=== PATIENT | female | born 1990 | race Caucasian/White ===

== ENCOUNTER 2020-11-03 08:26 | Outpatient (CLI) | payer OTHER, SELFPAY ==
[2020-11-03 09:05] LABS: Hematocrit 37.5 % (37.0-47.0); Hemoglobin 12.6 g/dL (12.0-15.0); Mean Corpuscular HGB Conc 33.6 g/dl (32-36); Mean Corpuscular Hemoglobin 29.9 pg (26-34); Mean Corpuscular Volume 88.9 fl (80-100); Mean Platelet Volume 9.8 fl (7.4-10.4); Platelet Count Result 271 k/mm3 (150-375); Red Blood Count 4.22 M/mm3 (4.2-5.4); White Blood Count 11.4 K/mm3 (4.5-10.0)
[2020-11-05 09:13] LABS: Rapid Plasma Reagin Non-Reactive (NonReactive)
== END 2020-11-03 08:27 | disposition home or self-care (01) ==
LOC: ANHLAB 08:27
PROVIDERS: PCP Family Medicine; Visit Provider Obstetrics & Gynecology
DX: Z01.818 Encounter for other preprocedural examination (principal)
CPT/HCPCS: 36415; 85027; 86592; 86850; 86900; 86901

== ENCOUNTER 2020-11-05 10:03 | Inpatient (IN) | payer OTHER, SELFPAY ==
--- NOTE | 2020-10-30 09:01 | P.HP_ITS ---
H&P: HPI History of Present Illness Date/Time: 10/30/20 09:01 Chief Complaint: term iup Narrative: Kristin Wing is a 30 year old female she the 2 para 1 whose last menstrual period was 02/04/2020, EDC is 0 11/08/2020, confirmed by 10 week ultrasound presents for repeat section. has been uncomplicated. She has had previous section. She is negative for group B strep Review of Systems Review of Systems: All systems reviewed & are unremarkable except as noted in HPI and below PMFSH Family History Family History Father [place] disease Social History Social History Substance use: never Gender identity (if verbalized by the patient): Female Spiritual care concerns: No Meds Home Medications and Allergies Home Medications Medication Instructions Recorded Confirmed Type PNV cmb#95-ferrous fumarate-FA 1 tablet PO DAILY 10/06/20 10/06/20 History [] Allergies Allergy/AdvReac Type Severity Reaction Status Date / Time No Known Allergies Allergy Unverified 01/26/19 12:33 Exam Const: General: no acute distress Eyes: General: appearance normal, both eyes and all related structures Neck: Neck: supple and no JVD Thyroid: thyroid normal Resp: Effort & Inspection: normal respiratory effort Auscultation: clear to auscultation bilaterally Cardio: Rate: regular rate Rhythm: regular rhythm GI: Inspection: non-distended GI Palp: Yes Soft to palpation, No Tenderness to palpation present (GI) and No Guarding due to palpation present (GI) Auscultation: normal bowel sounds : General: Yes bladder normal to palpation External Female Exam: normal external appearance Speculum Exam - Vagina: normal appearance of the vagina Speculum Exam - Cervix: normal appearance of the cervix Bimanual exam- vagina & uterus: consistency normal ( gravid soft uterus) Skin: General skin exam: no rashes or lesions noted Extrem: General: normal to inspection and no edema Psych: Mental Status: mental status grossly normal Affect: normal affect Assessment and Plan Additional Plan impression: Term with previous section Plan: Repeat low-transverse section
[2020-11-05] VITALS (57 sets, daily range): BP systolic 91–120; BP diastolic 61–83; PULSE 68–121; RESP 14–18; TEMP 36.1–36.6; O2SAT 88–100; BMI 25.9
--- NOTE | 2020-11-05 07:41 | WPDHPUPDATE1 ---
History and Physical Update Update Date/Time: 11/05/20 07:41 History and Physical has been reviewed, including an updated exam of the patient. There are NO changes in the patient's condition. Risks, benefits, and alternatives have been discussed and questions answered. Patient agrees to proceed with procedure.
[2020-11-05] MEDS: LACTATED RINGERS 1,000 ML 125 ML IV CONT ×2 (10:58→13:40)
--- NOTE | 2020-11-05 11:25 | WPDANESEPPF ---
Anes - Initial Pre Proc Eval Procedure: Operation Date: 11/05/20 12:00 Proposed Procedures p Repeat Section - Sachin Thompson MD Date/Time: 11/05/20 11:25 Surgeon: Sachin Thompson MD Pre Op Diagnosis: C/S Patient Data Age: 30 Gender: F Height: 5 ft 8 in Weight: 77.27 kg Last Vital Signs Pulse 96 11/05/20 10:46 BP 109/79 11/05/20 10:46 Allergies Allergy/AdvReac Type Severity Reaction Status Date / Time No Known Allergies Allergy Unverified 01/26/19 12:33 Home Medications Medication Instructions Recorded Confirmed Type PNV cmb#95-ferrous fumarate-FA 1 tablet PO DAILY 10/06/20 10/06/20 History [] Laboratory Tests 11/05/20 10:41 HIV 1&2 Ab/P24 Ag 4thGn Pending Patient hx anesthesia problems: none Family hx anesthesia problems: none PMFSH Surgical History Surgical History (Updated 11/05/20 @ 11:25 by Sachin White MD) History of section Family History Family History Father [place] disease Social History Social History Substance use: never Gender identity (if verbalized by the patient): Female Spiritual care concerns: No Anes - Eval Final PreProcedure Day of Procedure 11/05/20 11:25 Patient weight: normal Heart: regular rate and rhythm Lungs: clear to auscultation Airway: Mallampati scale class II Neurological: alert and oriented Last oral intake: >/= 8 hours ASA classification: II Emergent: no Anesthetic plan: proceed Anesthesia type and monitoring: regional spinal and standard monitoring Informed Consent: The patient's anesthetic plan and its attendant risks and benefits were discussed with the patient/family/POA. Questions were solicited and answers provided to the satisfaction of the patient/family/POA.
--- NOTE | 2020-11-05 11:37 | LDADM ---
This patient, Kristin Wing, was admitted to Labor/Delivery/Recovery 119 on 11/05/20 at 10:03. Plans for scheduled section, pain management and were discussed with patient. Patient/family oriented to hospital policies and general routines including ID bracelet, bed and alarms, visiting hours, pain management, procedures, bathroom and other care routines, personal items, smoking policy, room service/diet and guest tray routines, infant security routines, and visiting hours. Patient/Family are encouraged to report perceived risks to care and to ask questions if they do not understand what they are told or what they should do. See OBIX for further documentation.
[2020-11-05] MEDS: ceFAZolin 2 GM/D5W 50 ML 2 GM/50 ML BAG IVPB (11:56)
[2020-11-05 11:57] LABS: HIV 1/2 Ab P24 Ag Result Negative (Negative)
--- NOTE | 2020-11-05 12:36 | PM.PROC ---
Procedure Note - Detailed Date of procedure: 11/05/20 Pre-op diagnosis: C/S Surgeon: Sachin Thompson MD Postop diagnosis: Term /previous section Procedure: Repeat low-transverse section Anesthesia: Spinal EBL: 180cc Findings: Female 7 lb 15 oz with Apgars of 8 and 9 at 1 and 5 minutes respective Complications: None Description of procedure: The patient was prepped draped in the normal sterile fashion placed in the supine position. Under excellent spinal anesthetic the abdomen was entered through the previous Pfannenstiel incision. The incision was carried upward outward fashion bilaterally and this fascia opened and opened in an upward outward fashion. The parietal peritoneum was elevated cut clamps and sharp dissection carried superiorly and inferiorly to the dome bladder. Bladder flap was formed bladder blade placed low-transverse incision made head delivered in the position. Anterior posterior shoulder delivered spontaneously. Cord clamped x2 and cut. passed off the table given Apgars of 8 [id number]. Cord blood was drawn. Placenta delivered intact manually Peter. Uterus wrapped in a moist towel and after assuring no membranes or debris remained in the uterus, the uterus was closed with continuous running locking 0 Vicryl from lateral edge to lateral edge. This was followed by a 2nd continuing running locking Vicryl from lateral edge to lateral edge. Hemostasis was assured. Ovaries and tubes appeared within normal limits. The uterus returned to the abdomen. The incision inspected 1 last time noted be hemostatic. The laps removed and accounted for. The fascia closed with continuous running 0 Vicryl from lateral edge to midline bilaterally. Irrigation the subcutaneous layer and the skin closed with Monocryl and glue Q BL was 180cc. Mom and baby doing fine at the time of dictation. All sponge, needle, instrument counts were correct. There were no immediate complications noted
[2020-11-05] MEDS: OXYTOCIN 30 UNITS/NS 500 ML 30 UNITS/500 ML BAG 125 UNITS IV CONT (13:40)
[2020-11-05] MEDS: fentaNYL CITRATE INJ (*CRX) 100 MCG/2 ML VIAL 25 MCG IV PUSH (14:06)
[2020-11-05] MEDS: ONDANSETRON INJ 4 MG/2 ML VIAL IV PUSH (14:13)
[2020-11-05] MEDS: KETOROLAC 30 MG/ML VIAL (*BKC) IV PUSH (14:20)
--- NOTE | 2020-11-05 15:05 | PC.NURSE ---
Patient transferred to post room #[id number] via stretcher. Support person present. Oriented to unit, room, information board, rooming in, admission packet and security measures. Patient verbalizes understanding.
[2020-11-05] MEDS: diphenhydrAMINE HCl INJ 50 MG/ML VIAL IV PUSH (16:29)
[2020-11-05] MEDS: DEXTROSE 5%/0.45% SOD CHL 1,000 ML 125 ML IV CONT (18:06)
[2020-11-06] VITALS: BP 102/67; PULSE 81; RESP 16; TEMP 36.4; O2SAT 98
[2020-11-06] MEDS: diphenhydrAMINE HCl INJ 50 MG/ML VIAL IV PUSH (00:47)
[2020-11-06] MEDS: IBUPROFEN 600 MG TABLET PO ×3 (00:47→21:21)
[2020-11-06 04:00] VITALS: BP 100/62; PULSE 85; RESP 16; TEMP 36.5; O2SAT 100
[2020-11-06 05:13] LABS: Basophils Absolute Auto 0.1 K/mm3 (0.0-0.1); Basophils Percent Auto 0.4 % (0.2-1.2); Eosinophils Absolute Auto 0.1 K/mm3 (0-0.3); Eosinophils Percent Auto 0.6 % (0-4.4); Hematocrit 33.2 % (37.0-47.0); Hemoglobin 11.1 g/dL (12.0-15.0); Immature Granulocyte Absolute 0.09 K/mm3 (0.00-0.031); Immature Granulocyte Percent A 0.6 % (0-0.5); Lymphocytes Absolute Auto 3.25 K/mm3 (0.9-3.2); Lymphocytes Percent Auto 20.6 % (18.3-44.2); Mean Corpuscular HGB Conc 33.4 g/dl (32-36); Mean Corpuscular Hemoglobin 30.4 pg (26-34); Mean Platelet Volume 9.7 fl (7.4-10.4); Monocytes Percent Auto 6.5 % (2.6-8.5); Neutrophils Absolute Auto 11.2 K/mm3 (1.3-6.7); Neutrophils Percent Auto 71.3 % (45.5-73.1); Platelet Count Result 229 k/mm3 (150-375); Red Blood Count 3.65 M/mm3 (4.2-5.4); Red Cell Distribution Width 13.2 % (11.5-14.5); White Blood Count 15.8 K/mm3 (4.5-10.0)
--- NOTE | 2020-11-06 07:43 | P.PNOB_ITS ---
OB - PN: Subj Subjective Date/time seen: 11/06/20 07:43 Patient comments: no complaints and pain well controlled baby status: doing well and nursing well OB - PN: Obj Data Labs CBC & Chem 7: 11/06/20 04:17 Labs: Laboratory Results - last 24 hr 11/05/20 11/06/20 10:41 04:17 WBC 15.8 H RBC 3.65 L Hgb 11.1 L Hct 33.2 L MCV 91.0 MCH 30.4 MCHC 33.4 RDW 13.2 Plt Count 229 MPV 9.7 Immature Gran % (Auto) 0.6 H Neut % (Auto) 71.3 Lymph % (Auto) 20.6 [place] % (Auto) 6.5 Eos % (Auto) 0.6 Baso % (Auto) 0.4 Lymph # (Auto) 3.25 H [place] # (Auto) 1.0 H Eos # (Auto) 0.1 Baso # (Auto) 0.1 Abs Immat Gran (auto) 0.09 H Absolute Neuts (auto) 11.2 H Absolute Nucleated RBC 0.0 Nucleated RBC % 0.0 HIV 1&2 Ab/P24 Ag 4thGn Negative OB - PN A/P Plan day: 1 Plan: routine care Time Spent With Patient Time: Total time spent is greater than 50% in coordination of care (as documented) at patient's floor/unit and/or counseling patient: Time with patient: less than 15 minutes Review of Systems Review of Systems: All systems reviewed & are unremarkable except as noted in HPI and below Exam Const: General: no acute distress Eyes: General: appearance normal, both eyes and all related structures Neck: Neck: supple and no JVD Thyroid: thyroid normal Resp: Effort & Inspection: normal respiratory effort Auscultation: clear to auscultation bilaterally Cardio: Rate: regular rate Rhythm: regular rhythm GI: Inspection: non-distended GI Palp: Yes Soft to palpation, No Tenderness to palpation present (GI) and No Guarding due to palpation present (GI) Auscultation: normal bowel sounds : General: Yes bladder normal to palpation External Female Exam: normal external appearance Speculum Exam - Vagina: normal vaginal discharge and No vaginal bleeding Speculum Exam - Cervix: nontender Bimanual exam- vagina & uterus: bladder normal to palpation and No Cervical tenderness present OB/external & speculum: No vaginal bleeding Skin: General skin exam: no rashes or lesions noted Extrem: General: normal to inspection and no edema Psych: Mental Status: mental status grossly normal Affect: normal affect
[2020-11-06 08:00] VITALS: BP 96/64; PULSE 85; RESP 20; TEMP 37; O2SAT 100
[2020-11-06] MEDS: KETOROLAC 30 MG/ML VIAL (*BKC) IV PUSH (08:19)
[2020-11-06] MEDS: DOCUSATE SODIUM 100 MG CAPSULE PO (08:19)
[2020-11-06] MEDS: SIMETHICONE 80 MG TAB.CHEW PO ×2 (08:19→17:40)
[2020-11-06] MEDS: MULTIVIT/MIN/PREN/FOL AC/IRON TABLET 1 TAB PO (08:20)
[2020-11-06] MEDS: HYDROcodone/acetaminophen (*CRX) 5-325 MG TABLET 1 TAB PO ×2 (08:21→17:40)
--- NOTE | 2020-11-06 09:38 | WPDANLDNPN2 ---
Anes-Prog Note L&D-Neuraxial Date/Time: 11/06/20 09:38 Neuraxial medications: intrathecal PF morphine Opiod-related complaints: none Patient feedback: Patient satisfied with post-operative pain management.
--- NOTE | 2020-11-06 09:39 | WPDANLDPN2 ---
Anes-Prog Note L&D Date/Time: 11/06/20 09:39 Comfortable throughout: section Neuraxial method: spinal Epidural/Spinal procedure site: clean & non-tender Neuro status: Neuro function grossly intact. Cardiovascular status: normal Respiratory status: normal Airway patency: baseline Mental status: baseline Post-Op hydration status: normal Vital Signs: Last Vital Signs Temp 36.5 C 11/06/20 04:00 Pulse 85 11/06/20 04:00 Resp 16 11/06/20 04:00 BP 100/62 11/06/20 04:00 Pulse Ox 100 11/06/20 04:00 Pain score (VAS): 0 I/O: Intake & Output 11/05/20 11/06/20 11/06/20 23:59 07:59 15:59 Intake Total 500 2414 240 Output Total 125 3200 Balance 375 -786 240 Post-procedural complaints: none Patient feedback: Patient satisfied with anesthetic care.
[2020-11-06 12:00] VITALS: BP 116/80; PULSE 90; RESP 20; TEMP 36.8; O2SAT 100; O2SAT 99
[2020-11-06 20:00] VITALS: BP 100/67; PULSE 89; RESP 16; TEMP 36.4; O2SAT 98
[2020-11-07] MEDS: HYDROcodone/acetaminophen (*CRX) 5-325 MG TABLET 1 TAB PO ×4 (01:57→16:23)
[2020-11-07] MEDS: IBUPROFEN 600 MG TABLET PO ×3 (04:30→16:24)
[2020-11-07] MEDS: SIMETHICONE 80 MG TAB.CHEW PO ×2 (07:14→16:23)
--- NOTE | 2020-11-07 07:44 | PM.DS ---
DS: Admitting Diagnosis Admitting Diagnosis Admitting Diagnosis: term iup previuos section DS: Summary Hospital Course Hospital Course: see dictation Time Spent with Patient Time attestation: Total time spent providing and/or coordinating discharge services: The patient was admitted for repeat section. Her hospital course was unremarkable. She remained afebrile. She was up ambulating voiding without difficulty eating, and generally without complaints. Exam Const: General: no acute distress Eyes: General: appearance normal, both eyes and all related structures Neck: Neck: supple and no JVD Thyroid: thyroid normal Resp: Effort & Inspection: normal respiratory effort Auscultation: clear to auscultation bilaterally Cardio: Rate: regular rate Rhythm: regular rhythm GI: Inspection: non-distended GI Palp: Yes Soft to palpation, No Tenderness to palpation present (GI) and No Guarding due to palpation present (GI) Auscultation: normal bowel sounds : General: Yes bladder normal to palpation External Female Exam: normal external appearance Speculum Exam - Vagina: normal vaginal discharge and No vaginal bleeding Speculum Exam - Cervix: nontender Bimanual exam- vagina & uterus: bladder normal to palpation and No Cervical tenderness present OB/external & speculum: No vaginal bleeding Skin: General skin exam: no rashes or lesions noted Extrem: General: normal to inspection and no edema Psych: Mental Status: mental status grossly normal Affect: normal affect Discharge Plan Discharge Attending physician on discharge: Sachin Thompson Discharging Clinician: Sachin Thompson Patient Disposition: Home, Self-Care Activity: may shower, no straining, may drive after 2 weeks and pelvic rest Diet: heart healthy Wound Care Instructions: follow printed instructions Patient Instructions: Antibiotic Form Stand Alone Forms: General Discharge Information Follow-up/Referrals: Sachin Thompson MD [Physician] - Discharge Medications: Continued PNV cmb#95-ferrous fumarate-FA [] 28 mg iron- 800 mcg Tablet 1 tablet PO DAILY RF: 0 Date of admission: 11/05/20 10:03 Primary Care Provider: Kennedy Gonzalez Admitting Provider: Sachin Thompson Attending physician on admission: Sachin Thompson Condition: Stable
--- NOTE | 2020-11-07 07:46 | PM.OBPNVD ---
OB - PN: Subj Subjective Date/time seen: 11/07/20 07:46 Patient comments: no complaints and pain well controlled baby status: doing well and nursing well OB - PN: Obj Data Labs CBC & Chem 7: 11/06/20 04:17 OB - PN A/P Plan day: 2 Plan: routine care, discharge home and follow up 6 weeks (4 weeks) Time Spent With Patient Time: Total time spent is greater than 50% in coordination of care (as documented) at patient's floor/unit and/or counseling patient: Time with patient: less than 15 minutes Review of Systems Review of Systems: All systems reviewed & are unremarkable except as noted in HPI and below Exam Const: General: no acute distress Eyes: General: appearance normal, both eyes and all related structures Neck: Neck: supple and no JVD Thyroid: thyroid normal Resp: Effort & Inspection: normal respiratory effort Auscultation: clear to auscultation bilaterally Cardio: Rate: regular rate Rhythm: regular rhythm GI: Inspection: non-distended GI Palp: Yes Soft to palpation, No Tenderness to palpation present (GI) and No Guarding due to palpation present (GI) Auscultation: normal bowel sounds : General: Yes bladder normal to palpation External Female Exam: normal external appearance Speculum Exam - Vagina: normal vaginal discharge and No vaginal bleeding Speculum Exam - Cervix: nontender Bimanual exam- vagina & uterus: bladder normal to palpation and No Cervical tenderness present OB/external & speculum: No vaginal bleeding Skin: General skin exam: no rashes or lesions noted Extrem: General: normal to inspection and no edema Psych: Mental Status: mental status grossly normal Affect: normal affect
[2020-11-07 08:00] VITALS: BP 108/69; PULSE 84; RESP 16; RESP 18; TEMP 36.1; O2SAT 99
--- NOTE | 2020-11-07 09:38 | PC.NURSE ---
Patient was given the opportunity to view the discharge video Mother & Baby Care, The First Two Weeks and to ask questions. Patient declined viewing the video and has been given the mother/baby guide for home reference.
--- NOTE | 2020-11-07 13:37 | PC.NURSE ---
1100 Breast feeding note; mother continues to breast feed infant; she feels her milk is coming in. She is also pumping and now having enough pumped milk to supplement each feeding with breast milk. Parents hoping for discharge home today, pending bilirubin this afternoon.Will continue supplementing until baby's bilirubin levels are WNL and stable. Pt has Mom Baby Guide; breast feeding pages flagged for home reference, including LC contact information. Reviewed frequency of feedings. Mother seems confident in nursing her baby, and had no questions for LC.
[2020-11-08 11:43] VITALS: BP 120/77; PULSE 92; RESP 20; TEMP 36.8; O2SAT 100
== END 2020-11-07 17:30 | disposition home or self-care (01) | DRG 788 ==
LOC: ANHLDR 10:12 → ANHOB2 15:11
PROVIDERS: Admitting Provider Obstetrics & Gynecology; PCP Family Medicine; Visit Provider Obstetrics & Gynecology
PROC: 10D00Z1 Extraction of Products of Conception, Low, Open Approach (ICD-10-PCS; CPT 59514; principal; 2020-11-05 12:00)
DX: O34.211 Maternal care for low transverse scar from previous cesarean delivery (principal); Z37.0 Single live birth; Z3A.40 40 weeks gestation of pregnancy
CPT/HCPCS: 36415; 85025; 85027; 86592; 86703; 86850; 86900; 86901; A9270; G0432; J0131; J0690; J1100; J1200; J1885; J2274; J2370; J2405; J2590; J3010; J7120

== ENCOUNTER 2023-05-09 07:02 | Outpatient (CLI) | payer OTHER, SELFPAY ==
[2023-05-09 07:46] LABS: Hematocrit 38.6 % (37.0-47.0); Hemoglobin 13.5 g/dL (12.0-15.0); Mean Corpuscular Hemoglobin 31.4 pg (26-34); Mean Corpuscular Volume 89.8 fl (80-100); Mean Platelet Volume 10.3 fl (7.4-10.4); Platelet Count Result 273 k/mm3 (150-375); Red Cell Distribution Width 13.3 % (11.5-14.5); White Blood Count 11.2 K/mm3 (4.5-10.0)
[2023-05-11 07:42] LABS: Rapid Plasma Reagin Non-Reactive (NonReactive)
== END 2023-05-09 07:03 | disposition home or self-care (01) ==
PROVIDERS: Visit Provider Obstetrics & Gynecology
DX: Z34.93 Encounter for supervision of normal pregnancy, unspecified, third trimester (principal); Z3A.00 Weeks of gestation of pregnancy not specified
CPT/HCPCS: 36415; 85027; 86592; 86850; 86900; 86901

== ENCOUNTER 2023-05-11 05:32 | Inpatient (IN) | payer OTHER, SELFPAY ==
--- NOTE | 2023-05-10 06:43 | P.HP_ITS ---
H&P: HPI History of Present Illness Date/Time: 05/10/23 06:43 Chief Complaint: Term for repeat section Narrative: Since 32-year-old term admitted for repeat section secondary to previou s section. 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 She has been followed in conjunction Maternal Medicine testing has been. She has good the dates with early ultrasound confirming dates. [facility] Surgical History Surgical History History of section Family History Family History Father [place] disease Social History Social History Smoking status: Former smoker Substance use: never Gender identity (if verbalized by the patient): Female Spiritual care concerns: No Meds Home Medications and Allergies Home Medications Medication Instructions Recorded Confirmed Type vit no.95-ferrous 1 tablet PO DAILY 10/06/20 10/06/20 History fumarate 28 mg-folic acid 800 mcg tablet () Allergies Allergy/AdvReac Type Severity Reaction Status Date / Time No Known Allergies Allergy Unverified 01/26/19 12:33 Exam Const: General: cooperative, healthy appearing and comfortable Nutritional Appearance: average body habitus Orientation/consciousness: oriented to person, oriented to place and oriented to time HENMT: Head: normal to inspection Resp: Effort & Inspection: normal respiratory effort Cardio: Rate: regular rate Rhythm: regular rhythm Heart sounds: S1 normal heart sound present and S2 normal heart sound present GI: Inspection: normal to inspection (Gravid soft uterus) Assessment and Plan Assessment and plan (1) Term : Code(s): Z34.90 - Encounter for supervision of normal , unspecified, unspecified trimester Status: Acute Plan Repeat low-transverse section. Peds will be made baby's genetics.
[2023-05-11] VITALS (83 sets, daily range): BP systolic 89–118; BP diastolic 52–91; PULSE 65–97; RESP 13–18; TEMP 36.4–36.6; O2SAT 97–100; BMI 27.1
--- NOTE | 2023-05-11 05:32 | LDADM ---
This patient, Kristin Wing, was admitted to Labor/Delivery/Recovery 120 on 05/11/23 at 05:32. Plans for labor, pain management and were discussed with patient. Patient/family oriented to hospital policies and general routines including ID bracelet, bed and alarms, visiting hours, pain management, procedures, bathroom and other care routines, personal items, smoking policy, room service/diet and guest tray routines, infant security routines, and visiting hours. Patient/Family are encouraged to report perceived risks to care and to ask questions if they do not understand what they are told or what they should do. See OBIX for further documentation.
[2023-05-11] MEDS: LACTATED RINGERS 1,000 ML 125 ML IV CONT ×3 (06:21→08:29)
--- NOTE | 2023-05-11 06:44 | WPDHPUPDATE1 ---
History and Physical Update Update Date/Time: 05/11/23 06:44 History and Physical has been reviewed, including an updated exam of the patient. There are NO changes in the patient's condition. Risks, benefits, and alternatives have been discussed and questions answered. Patient agrees to proceed with procedure.
--- NOTE | 2023-05-11 07:14 | WPDANESEPPF ---
Anes - Initial Pre Proc Eval Procedure: Operation Date: 05/11/23 07:30 Proposed Procedures p Repeat Section - Sachin Palencia MD Date/Time: 05/11/23 07:14 Surgeon: Sachin Palencia MD Pre Op Diagnosis: R C/S Patient Data Age: 32 Gender: F Height: 1.73 m Weight: 81 kg Last Vital Signs Pulse 76 05/11/23 07:00 BP 115/91 H 05/11/23 07:00 O2 Del Method Room Air 05/11/23 06:24 Allergies Allergy/AdvReac Type Severity Reaction Status Date / Time No Known Allergies Allergy Unverified 01/26/19 12:33 Home Medications Medication Instructions Recorded Confirmed Type vit no.95-ferrous 1 tablet PO DAILY 10/06/20 05/11/23 History fumarate 28 mg-folic acid 800 mcg tablet () hydrocodone 5 mg-acetaminophen 325 1 tablet PO Q4H PRN pain #30 tabs 05/11/23 Rx mg tablet Patient hx anesthesia problems: none Family hx anesthesia problems: none Results Review: All pre-operative results and documents have been reviewed as part of the pre-operative evaluation. [facility] Surgical History Surgical History History of section Family History Family History Father [place] disease Social History Social History Smoking status: Former smoker Substance use: never Lack of Transportation: No Lack of Food: Never True Current Housing: I Have Housing Concerned About Future Housing: No Difficulty Paying Gas/Electric Bills: No Difficulty Paying for Meds: No Currently Unemployed: No Education: Bachelor's Degree Difficulty w/ Childcare or Family Care: No Gender identity (if verbalized by the patient): Female Spiritual care concerns: No Anes - Eval Final PreProcedure Day of Procedure 05/11/23 07:14 Patient weight: overweight Heart: regular rate and rhythm Lungs: clear to auscultation Airway: Mallampati scale class II Neurological: alert and oriented Last oral intake: >/= 8 hours ASA classification: II Emergent: no Anesthetic plan: proceed Anesthesia type and monitoring: regional spinal and standard monitoring Results Review: All pre-operative results and documents have been reviewed as part of the pre-operative evaluation. Informed Consent: The patient's anesthetic plan and its attendant risks and benefits were discussed with the patient/family/POA. Questions were solicited and answers provided to the satisfaction of the patient/family/POA.
[2023-05-11] MEDS: ceFAZolin 2 GM/D5W 50 ML 2 GM/50 ML BAG IVPB (07:29)
--- NOTE | 2023-05-11 08:12 | P.OP_ITS ---
Procedure Note - Detailed Date of Procedure 05/11/23 Pre-op Diagnosis R C/S Post-op Diagnosis Same Procedure Performed Repeat low-transverse section Surgeon Sachin Palencia MD Anesthesia Spinal Indications this is a 32-year-old multipara with previous section known Down syndrome baby. Findings Female infant 8 lb 0 oz Apgars 9 and 9 at 1 and 5 minutes respectively Description of Procedure patient is prepped draped in normal sterile fashion placed in the dorsal lithotomy position. Under excellent spinal anesthetic the abdomen was entered in Pfannenstiel fashion progressive layers of fascia. Fascia incised midline carried upward out fashion bilaterally. Underlying muscles sharply dissected. Parietal peritoneum a by [place] clamps and by sharp dissection. This carried to. Inferiorly down the bladder. Bladder blade placed bladder flap formed. Bladder flap returned a low-transverse incision made the head delivered in the JESÚS position. Anterior posterior shoulder delivered spontaneously. Cord clamped 2 and cut and passed off the table given Apgars of 9 [id number]. Cord blood was drawn please. Placenta delivered intact manually uterus delivered on the abdomen wrapped in moist towel. After assuring no membranes are remained in the uterus, the uterus was closed with continuous running 0 Vicryl from lateral edge lateral edge followed by 2nd imbricating r unning locking 0 Vicryl from lateral edge lateral edge. Hemostasis was assured. The fascia was then closed with continuous running 0 Vicryl from lateral edge lateral edge irrigation subcutaneous layer and skin closed with 4 Monocryl glue. Patient went to recovery in satisfactory condition. All sponge, needle, instrument counts were correct. There were no immediate complications Estimated Blood Loss 80 Drains No Packing No Pathology None sent Complications No immediate complications Condition Stable Disposition PACU
[2023-05-11] MEDS: ONDANSETRON INJ 4 MG/2 ML VIAL IV PUSH (10:33)
[2023-05-11] MEDS: OXYTOCIN 30 UNITS/NS 500 ML 30 UNITS/500 ML BAG 125 UNITS IV CONT (10:44)
[2023-05-11] MEDS: KETOROLAC 30 MG/ML VIAL (*BKC) IV PUSH ×2 (10:44→17:08)
[2023-05-11] MEDS: SCOPOLAMINE 1.5 MG PATCH TRANSDERM (12:49)
[2023-05-11] MEDS: DEXTROSE 5%/0.45% SOD CHL 1,000 ML 125 ML IV CONT (14:55)
--- NOTE | 2023-05-11 15:07 | PC.NURSE ---
1330 Introductions were made, then consulted with patient to assess needs related to . Mother led the conversation with her?plans to feed?her and the?experience so far. Mother and father work well with . Mother is very able to get baby to latch onto breast and was able to work with baby if baby would tire and take a break during feeding. Encouraged the benefits of skin to skin, stimulating with massage touch, changing positions to encourage wakefulness, how to watch for early feeding cues, responsive feeding, feeding on demand (aiming for 8-12 times in 24 hours, about every 2-3 hours), milk production, building/maintaining a milk supply, duration of feeding, signs of adequate intake/output and how to record on the feeding sheet. Reviewed positioning and ear, shoulder, hip alignment, supporting the breast to facilitate a deep latch, asymmetrical latch (off-center), leading with the chin with a big, open, wide gape and body close to mother. Infant latched optimally to the both breasts in football and cross cradle positions. Education given to mother of how to visualize suck/swallow ratios and listen for drinking at the breast. was to maintain latch without discomfort to mother. Nipple care reviewed with optimal latch and good positioning. Discussed comfort measures of healing with a warm and wet washcloth to rinse breast, then leave open to air-dry as needed. Reviewed good handwashing when or touching the breast/nipples to prevent infection. Resources used to facilitate learning were used with the visual handouts and mom and baby guide. Mother voiced understanding of skin to skin, stimulating with massage touch, responsive feedings, hand expressed colostrum, talking to infant to encourage if it has been 2 -2.5 hours since the start of the last , to call if does not latch, or if there is discomfort with . Resources provided for inpatient/outpatient with business card, feeding sheet and the mom/baby guide. Parents voiced understanding of information, demonstrated learning and will call if there is a request for assistance. Reported to primary RN.
[2023-05-12 00:31] VITALS: BP 85/52; PULSE 86; RESP 18; TEMP 36.8; O2SAT 97
[2023-05-12 04:45] VITALS: BP 87/54; PULSE 86; RESP 14; TEMP 36.9; O2SAT 95
[2023-05-12 05:31] LABS: Basophils Absolute Auto 0.1 K/mm3 (0.0-0.1); Basophils Percent Auto 0.3 % (0.2-1.2); Eosinophils Absolute Auto 0.2 K/mm3 (0-0.3); Eosinophils Percent Auto 1.4 % (0-4.4); Hematocrit 36.8 % (37.0-47.0); Hemoglobin 12.3 g/dL (12.0-15.0); Immature Granulocyte Absolute 0.08 K/mm3 (0.00-0.031); Immature Granulocyte Percent A 0.5 % (0-0.5); Lymphocytes Absolute Auto 2.05 K/mm3 (0.9-3.2); Lymphocytes Percent Auto 13.9 % (18.3-44.2); Mean Corpuscular HGB Conc 33.4 g/dl (32-36); Mean Corpuscular Hemoglobin 30.6 pg (26-34); Mean Corpuscular Volume 91.5 fl (80-100); Mean Platelet Volume 10.1 fl (7.4-10.4); Monocytes Absolute Auto 0.7 K/mm3 (0.1-0.6); Monocytes Percent Auto 4.6 % (2.6-8.5); Neutrophils Absolute Auto 11.7 K/mm3 (1.3-6.7); Neutrophils Percent Auto 79.3 % (45.5-73.1); Platelet Count Result 247 k/mm3 (150-375); Red Blood Count 4.02 M/mm3 (4.2-5.4); Red Cell Distribution Width 13.5 % (11.5-14.5); White Blood Count 14.8 K/mm3 (4.5-10.0)
--- NOTE | 2023-05-12 06:37 | PM.DS ---
DS: Admitting Diagnosis Discharge Date 05/13/23 Admitting Diagnosis Term / chromosomal abnormality /previous section DS: Discharge Diagnosis Discharge Diagnosis (1) Term : Code(s): Z34.90 - Encounter for supervision of normal , unspecified, unspecified trimester Status: Acute DS: Summary Hospital Course Reason for hospitalization: patient was admitted for repeat section at term Hospital Course: patient underwent repeat low-transverse section. Hospital course unremarkable. She remained afebrile. She was up, voiding without difficulty, ambulating, eating regular diet, and generally without complaints. Time Spent with Patient Time attestation: Total time spent providing and/or coordinating discharge services: Exam Const: General: cooperative, healthy appearing and comfortable Nutritional Appearance: average body habitus Orientation/consciousness: oriented to person, oriented to place and oriented to time HENMT: Head: normal to inspection Resp: Effort & Inspection: normal respiratory effort Cardio: Rate: regular rate Rhythm: regular rhythm Heart sounds: S1 normal heart sound present and S2 normal heart sound present GI: Inspection: normal to inspection and incision ( Wound clean dry and intact) DS: Data Data Completed and Pending Labs on day of discharge: Labs from last 24 hours 05/12/23 04:51 WBC 14.8 H RBC 4.02 L Hgb 12.3 Hct 36.8 L MCV 91.5 MCH 30.6 MCHC 33.4 RDW 13.5 Plt Count 247 MPV 10.1 Immature Gran % (Auto) 0.5 Neut % (Auto) 79.3 H Lymph % (Auto) 13.9 L [place] % (Auto) 4.6 Eos % (Auto) 1.4 Baso % (Auto) 0.3 Lymph # (Auto) 2.05 [place] # (Auto) 0.7 H Eos # (Auto) 0.2 Baso # (Auto) 0.1 Abs Immat Gran (auto) 0.08 H Absolute Neuts (auto) 11.7 H Absolute Nucleated RBC 0.0 Nucleated RBC % 0.0 Discharge Plan Discharge Attending physician on discharge: Sachin Segundo Discharging Clinician: Sachin Segundo Patient Disposition: Home, Self-Care Activity: may shower, no straining and pelvic rest Diet: heart healthy Wound Care Instructions: follow printed instructions Patient Instructions: Antibiotic Form Stand Alone Forms: General Discharge Information Follow-up/Referrals: Sachin Segundo MD [Physician] - Discharge Medications: New hydrocodone-acetaminophen 5-325 mg tablet 1 tablet PO Q4H PRN (Reason: pain) Qty: 30 0RF Continued PNV [id number] fumarate-FA [] 28 mg iron- 800 mcg Tablet 1 tablet PO DAILY Date of admission: 05/11/23 05:32 Primary Care Provider: PHYSICIAN,VEHICLE INSPECTOR Admitting Provider: Sachin Segundo Attending physician on admission: Sachin Segundo Condition: Stable
--- NOTE | 2023-05-12 06:53 | PM.OBPNVD ---
OB - PN: Subj Subjective Date/time seen: 05/12/23 06:53 Patient comments: no complaints and pain well controlled baby status: doing well and nursing well OB - PN: Obj Data Labs 05/12/23 04:51 Labs: Laboratory Results - last 24 hr 05/12/23 04:51 WBC 14.8 H RBC 4.02 L Hgb 12.3 Hct 36.8 L MCV 91.5 MCH 30.6 MCHC 33.4 RDW 13.5 Plt Count 247 MPV 10.1 Immature Gran % (Auto) 0.5 Neut % (Auto) 79.3 H Lymph % (Auto) 13.9 L [place] % (Auto) 4.6 Eos % (Auto) 1.4 Baso % (Auto) 0.3 Lymph # (Auto) 2.05 [place] # (Auto) 0.7 H Eos # (Auto) 0.2 Baso # (Auto) 0.1 Abs Immat Gran (auto) 0.08 H Absolute Neuts (auto) 11.7 H Absolute Nucleated RBC 0.0 Nucleated RBC % 0.0 OB - PN A/P Plan day: 1 Plan: routine care Time Spent With Patient Time: Total time spent is greater than 50% in coordination of care (as documented) at patient's floor/unit and/or counseling patient: Time with patient: less than 15 minutes Exam Const: General: cooperative, healthy appearing and comfortable Nutritional Appearance: average body habitus Orientation/consciousness: oriented to person, oriented to place and oriented to time HENMT: Head: normal to inspection Resp: Effort & Inspection: normal respiratory effort Cardio: Rate: regular rate Rhythm: regular rhythm Heart sounds: S1 normal heart sound present and S2 normal heart sound present GI: Inspection: normal to inspection and incision (cdi)
[2023-05-12 07:55] VITALS: BP 99/61; PULSE 82; RESP 18; TEMP 36.8; O2SAT 100
--- NOTE | 2023-05-12 13:58 | WPDANLDPN2 ---
Anes-Prog Note L&D Date/Time: 05/12/23 13:58 Comfortable throughout: section Neuraxial method: spinal Epidural/Spinal procedure site: clean & non-tender Neuro status: Neuro function grossly intact. Cardiovascular status: normal Respiratory status: normal Airway patency: baseline Mental status: baseline Post-Op hydration status: normal Vital Signs: Last Vital Signs Temp 36.8 C 05/12/23 07:55 Pulse 82 05/12/23 07:55 Resp 18 05/12/23 07:55 BP 99/61 L 05/12/23 07:55 Pulse Ox 100 05/12/23 07:55 O2 Del Method Room Air 05/12/23 10:44 Pain score (VAS): 3/10 I/O: Intake & Output 05/11/23 05/12/23 05/12/23 23:59 07:59 15:59 Intake Total 1100 1000 Output Total 1450 2300 Balance -350 -1300 Post-procedural complaints: none Patient feedback: Patient satisfied with anesthetic care.
--- NOTE | 2023-05-12 13:59 | WPDANLDNPN2 ---
Anes-Prog Note L&D-Neuraxial Date/Time: 05/12/23 13:59 Neuraxial medications: intrathecal PF morphine Opiod-related complaints: nausea moderate, treatment effective Patient feedback: Patient satisfied with post-operative pain management.
--- NOTE | 2023-05-12 13:59 | WPDANLDPN2 ---
Anes-Prog Note L&D Date/Time: 05/12/23 13:59 Comfortable throughout: section Neuraxial method: spinal Epidural/Spinal procedure site: clean & non-tender Neuro status: Neuro function grossly intact. Cardiovascular status: normal Respiratory status: normal Airway patency: baseline Mental status: baseline Post-Op hydration status: normal Vital Signs: Last Vital Signs Temp 36.8 C 05/12/23 07:55 Pulse 82 05/12/23 07:55 Resp 18 05/12/23 07:55 BP 99/61 L 05/12/23 07:55 Pulse Ox 100 05/12/23 07:55 O2 Del Method Room Air 05/12/23 10:44 Pain score (VAS): 3/10 I/O: Intake & Output 05/11/23 05/12/23 05/12/23 23:59 07:59 15:59 Intake Total 1100 1000 Output Total 1450 2300 Balance -350 -1300 Post-procedural complaints: none Patient feedback: Patient satisfied with anesthetic care.
[2023-05-12 20:56] VITALS: BP 102/71; PULSE 75; RESP 18; TEMP 36.5; O2SAT 100
--- NOTE | 2023-05-13 06:53 | PM.OBPNVD ---
OB - PN: Subj Subjective Date/time seen: 05/13/23 06:53 Patient comments: no complaints and pain well controlled baby status: doing well and nursing well OB - PN: Obj Data Labs 05/12/23 04:51 OB - PN A/P Plan day: 2 Plan: routine care, discharge home and follow up 6 weeks (4) Time Spent With Patient Time: Total time spent is greater than 50% in coordination of care (as documented) at patient's floor/unit and/or counseling patient: Time with patient: less than 15 minutes Exam Const: General: cooperative, healthy appearing and comfortable Nutritional Appearance: average body habitus Orientation/consciousness: oriented to person, oriented to place and oriented to time HENMT: Head: normal to inspection Resp: Effort & Inspection: normal respiratory effort Cardio: Rate: regular rate Rhythm: regular rhythm Heart sounds: S1 normal heart sound present and S2 normal heart sound present GI: Inspection: normal to inspection and incision (cdi)
[2023-05-13 07:55] VITALS: BP 111/74; PULSE 78; RESP 16; TEMP 37.1; O2SAT 100
--- NOTE | 2023-05-13 13:43 | PCCCNOTE ---
Received referral. Met with pt. and father of baby at bedside. During they have met with social science instructor at [employer] regarding Trisomy 21 diagnosis. They have been referred for further genetic testing. They were provided resources for comprehensive clinic and down syndrome association as well as additional resources through [facility]. They have established with a fitter mechanic. They have 2 other children ages 4 and 2. They have all needed items to care for at discharge home today. They have much support from family and friends. They have connected through social media with other local families to establish additional support network. Discussed all above. Provided support. No further care coordination needs indicated at this time.
--- NOTE | 2023-05-13 17:20 | PC.NURSE ---
[id number] Introductions were made, then consulted with patient to assess needs related to . Mother led the conversation with her?plans to feed?her infant and the?experience so far with her Trisomy 21 . Mother works well with her infant with encouragement and education. Encouraged understanding of the benefits of skin to skin (demonstrating unwrapping infant and placing upright on her chest), stimulating with massage touch, changing positions to encourage wakefulness, how to watch for early feeding cues, responsive feeding, feeding on demand (aiming for 8-12 times in 24 hours, about every 2-3 hours), milk production, building/maintaining a milk supply, duration of feeding, signs of adequate intake/output and how to record on the feeding sheet. Reviewed positioning and ear, shoulder, hip alignment, supporting the breast to facilitate a deep latch, practiced the flipple , asymmetrical latch (off-center), leading with the chin with a big, open, wide gape and body close to mother. Infant latched optimally to the right breast in cross cradle position. Education given to mother of how to visualize suck/swallow ratios and listen for drinking at the breast. was able to maintain latch without discomfort to mother. Nipple care reviewed with optimal latch and good positioning. Reminding mother of comfort measures of healing with a warm and wet washcloth to rinse breast, then leave open to air-dry as needed. Reviewed good handwashing when , touching the breast/nipples to prevent infection, resources of how to prevent mastitis, oversupply, clog ducts and engorgement and what to do if it occurs. Resources used to facilitate learning were used with the tool, mom and baby guide. Mother voiced understanding of skin to skin, stimulating with massage touch, responsive feedings, talking to to encourage if it has been 2 -2.5 hours since the start of the last , to call if does not latch, or if there is discomfort with . Resources provided for inpatient/outpatient with feeding sheet and the mom/baby guide. Parents voiced understanding of information, demonstrated learning and will call if there is a request for assistance. Reported to the Primary RN.
--- NOTE | 2023-05-13 17:24 | PC.NURSE ---
1245 - Additional resources provided to support the family managing an infant with Trisomy 21.
--- NOTE | 2023-05-13 19:23 | PC.NURSE ---
0700 Patient viewed the discharge video Mother & Baby Care, The First Two Weeks . Patient was given the opportunity and encouraged to ask questions. Patient verbalized understanding of information shared and has been given the mother/baby guide for home reference.
[2023-05-14 10:28] VITALS: BP 114/75; PULSE 79; RESP 18; TEMP 37.1; O2SAT 99
== END 2023-05-13 15:07 | disposition home or self-care (01) | DRG 788 ==
LOC: ANHLDR 06:47 → ANHOB2 11:23
PROVIDERS: Admitting Provider Obstetrics & Gynecology; Visit Provider Obstetrics & Gynecology
PROC: 10D00Z1 Extraction of Products of Conception, Low, Open Approach (ICD-10-PCS; CPT 59514; principal; 2023-05-11 07:30)
DX: O34.211 Maternal care for low transverse scar from previous cesarean delivery (principal); Z37.0 Single live birth; Z3A.39 39 weeks gestation of pregnancy; O35.13X0 Maternal care for (suspected) chromosomal abnormality in fetus, Trisomy 21, not applicable or unspecified
CPT/HCPCS: 36415; 85025; 85027; 86592; 86850; 86900; 86901; A9270; J0690; J1885; J2274; J2405; J2590; J7120